=== PATIENT | female | born 1935 | race Caucasian/White ===

== ENCOUNTER 2017-06-04 05:13 | Day surgery (SDC) | payer OTHER ==
[~2017-06-04 05:13] MED LIST: AMLODIPINE BES2.5 MG PO; ATORVASTATIN CA20 MG PO; CARVEDILOL3.125 MG PO; FAMCICLOVIR125 MG PO; IMODIUM A-D2 MG PO; INTESTINEX1 CA1 PO; INTESTINEX680 MG PO; OXYC1TAB9 PO; SYNTHROID50 MCG PO; TRAM1TAB98 PO
== END 2017-06-04 10:05 | disposition home or self-care (01) ==
LOC: AMB-ENDOS 05:13
DX: D12.0 Benign neoplasm of cecum (principal); K57.30 Diverticulosis of large intestine without perforation or abscess without bleeding